=== PATIENT | male | born 1950 | race Caucasian/White ===

== ENCOUNTER 2017-02-07 08:56 | Day surgery (SDC) | payer MEDICARE, OTHER ==
[~2017-02-07] VITALS: Ht 177.8 cm; Wt 105.1 kg
--- NOTE | ~2017-02-07 | OR ---
PATIENT'S NAME: FLAVIO NOEL [facility] AGE: 66 Y [address] ROOM: [address] [address] LOCATION: [facility] ADMIT DATE: 02/07/2017 OR/Procedure Report DISCHARGE DATE: FAMILY PHYSICIAN: Jessa Khan APRN ATTENDING PHYSICIAN: Sergio Cabrales SURGEON: Sergio Cabrales MD [employer] ADVISOR: DATE OF PROCEDURE: 02/07/2017 PREOPERATIVE DIAGNOSES: 1. Right L2-L3 lateral recess stenosis. 2. L2-L3 central spinal stenosis. POSTOPERATIVE DIAGNOSES: 1. Right L2-L3 lateral recess stenosis. 2. L2-L3 central spinal stenosis. OPERATION PROPOSED AND PERFORMED: 1. Operation proposed; right L2-L3 lateral recess decompression resulting in partial hemilaminectomy with medial facetectomy and foraminotomy. 2. Decompression of stenosed central canal. DESCRIPTION OF PROCEDURE: Under general anesthesia, the patient was positioned prone. The back was prepped and draped in the usual fashion. Midline linear incision was then carried out extending from the spinous process of L3 all the way to L2 spinous process. Fascia was incised to the right of the midline. The paraspinal muscles were reflected from the lamina of L2 on L3 on the right side. Using fluoroscopy, we were able to determine the level we were at. Next, Small self-retaining retractors were then used for retraction to point out that the fascia was incised to the right of the midline. The paraspinal muscles were reflected from the lamina on the right side. Next, microscope was then brought in after we had used retractor for retraction and using the drill, drilled off the inferior part of the lamina of L2, excised the yellow ligament and the yellow ligament was thick and there was stenosis of both the central as well as lateral recess on this right side. We were able to adequately decompress both, needed to do was drilled off the medial aspect of the L2-L3 facet and decompressed the dura all the way lateral to the dura and we were able to identify the nerve root and followed the nerve root into the neuroforamen. We were convinced there was no further compression. After this was done, the wound was thoroughly irrigated with bacitracin irrigation. We used powdered Gelfoam soaked in thrombin for hemostasis. We waited for 5 minutes, washed out most of the powdered Gelfoam. There was very minimal bleeding after we had done this. The wound was then closed in layers; first the fascia, subcutaneous tissue, and finally the skin with ki. The patient tolerated the procedure well and was taken to the PATIENT'S NAME: FLAVIO NOEL [facility] AGE: 66 Y [address] ROOM: [address] [address] LOCATION: [facility] ADMIT DATE: 02/07/2017 OR/Procedure Report DISCHARGE DATE: FAMILY PHYSICIAN: Jessa Khan APRN ATTENDING PHYSICIAN: Sergio Cabrales recovery room. MD NEY OLIVIA/carla /[id number] d: 02/07/17 2155 t: 03/06/17 1609, OPERATIVE SUMMARY
[~2017-02-07 08:56] MED LIST: AMOXICILLIN500 MG PO; ASPIRIN EC81 MG PO; COREG12.5 MG PO; CPAP INH; FOLIC ACID1 MG PO; LIPITOR80 MG PO; MOBIC15 MG PO; PROTONIX40 MG PO; VENTOLIN HFA18 GM INH; VITAMIN B-1100 M1 PO; ZESTRIL40 MG PO
--- NOTE | 2017-02-08 05:04 | NUR ---
Significant Event: Alert and oriented X3. Vital signs stable. Increased 02 to 2L to keep sats >90% while sleeping. Now awake, sats at 93% on RA. Occasional non-productive cough. Dressing to back with moderate amount of drainage. Neurochecks WNL. Denies numbness/tingling. Ambulates with SBA. Ambulated in hallway X2. Saline locked. GENERAL AGENT dc'd at 0415. Superior given at HS, refuses this am. Follow up: Order for tylenol from Dr. Cabrales.
--- NOTE | 2017-02-08 09:53 | NUR ---
Significant Event: Pt up from PACU at 1440. Hypertensive but improving. IV intact. Taking PO well. Voiding without difficulty. Ambulates with SBA. Neuro WNL. Right lower extremity just slightly weaker than left. Pt states he is feeling better already. Morphine TOOL FILER. Rates pain at a one. Dressing to lumbar back has small amt of drainage. Plans to d/c home tomorrow. Follow up:
--- NOTE | 2017-02-08 12:36 | NUR ---
Introduced self and care management services to patient and sister at bedside. Lives alone in [facility]. Sister said he may go home with her for a couple days. Pt has a cane he can use at home, has not used walker or cane here. Denies concerns about going home on discharge, may go home later today.
[2017-02-08] MEDS ORDERED: PERCOCET 5-3251 EACH PO (14:02)
--- NOTE | 2017-02-08 15:02 | NUR ---
PATIENT DISMISSED TO HOME WITH SISTER. PATIENT VERBALIZED UNDERSTANDING OF DISCHARGE TEACHING INCLUDING WOUND CARE, SHOWERING, NEW MEDICATIONS, RETURN APPOINTMENT INSTRUCTIONS, PRECAUTIONS. ALL PERSONAL BELONGINGS SENT WITH PATIENT.
--- NOTE | 2017-02-08 15:25 | NUR ---
I HAVE REVIEWED CHARTING AND ASSESSMENTS OF sTUDENT nURSE MARTÍN De La Torre AND AM IN AGREEMENT WITH CHARTING AND ASSESSEMENTS FOR THIS SHIFT.
--- NOTE | 2017-02-08 18:12 | NUR ---
i have read assessments and charting of student nurse Sameera Irizarry, and am in agreement of charting and assessments for this shift.
== END 2017-02-08 14:25 | disposition disaster alternative care site (69) ==
LOC: GSDC 08:56 → G3N 08:56 → GSDC 02-08 14:25
PROC: 00NY0ZZ Release Lumbar Spinal Cord, Open Approach (ICD-10-PCS; principal; 2017-02-07)
DX: M48.06 Spinal stenosis, lumbar region (principal); I10 Essential (primary) hypertension; K21.9 Gastro-esophageal reflux disease without esophagitis; J45.909 Unspecified asthma, uncomplicated
CPT/HCPCS: J0690; J1100; J2250; J2270; J2405; J7050; J7120